=== PATIENT | female | born 1990 | race Caucasian/White ===

== ENCOUNTER 2018-04-26 16:26 | Emergency (ER) | payer OTHER ==
[~2018-04-26] VITALS: Ht 165.1 cm; Wt 80.3 kg
[2018-04-26 16:35] VITALS: BP 120/66
[2018-04-26] MEDS ORDERED: TDAP [DIPH/PERTUSSIS/TET] 0.5 ML VIAL IM ONE ×2 (17:00→17:01)
--- NOTE | 2018-04-26 17:36 | NUR ---
Patient discharged to home in stable condition. Written and verbal after care instructions given. Patient verbalizes understanding of instruction.
== END 2018-04-26 17:35 | disposition home or self-care (01) ==
LOC: ER 16:26
DX: S91.332A Puncture wound without foreign body, left foot, initial encounter (principal); W20.8XXA Other cause of strike by thrown, projected or falling object, initial encounter; Y93.89 Activity, other specified; Y92.89 Other specified places as the place of occurrence of the external cause; Y99.8 Other external cause status
CPT/HCPCS: 73630-TC; 90715

== ENCOUNTER 2020-04-28 17:01 | Emergency (ER) | payer BC ==
[~2020-04-28] VITALS: Ht 165.1 cm; Wt 79.4 kg
[2020-04-28 17:12] VITALS: BP 118/66
[2020-04-28] MEDS ORDERED: ACET-73 PO (17:26)
[2020-04-28] MEDS ORDERED: CYCL5TAB PO (17:26)
--- NOTE | 2020-04-28 17:42 | NUR ---
Patient discharged to home in stable condition. Written and verbal after care instructions given. Patient verbalizes understanding of instruction.
== END 2020-04-28 17:42 | disposition home or self-care (01) ==
LOC: ER 17:07
DX: M62.838 Other muscle spasm (principal); Z79.899 Other long term (current) drug therapy